=== PATIENT | female | born 1985 | race Two or more races ===

== ENCOUNTER 2025-01-24 14:11 | Outpatient (AMB) | payer OTHER, SELFPAY ==
--- NOTE | 2025-01-24 14:13 | A.OFFPC_ITS ---
Vital Signs 01/24/25 14:21 Weight 211 lb BP 112/72 Blood Pressure Location Lt brachial Position Sitting Respiration 22 H Pulse 84 Pulse Source Pulse Oximeter Temp 98 F Temp Source Oral Pulse Oximetry (%) 100 Oxygen Delivery Method Room Air Intake Visit Reasons: joint pain in right knee Intake Note: joint pain in right knee Dental Assisting Instructor Required: No Allergies pineapple Allergy (Severe, Verified 01/24/25 14:17) Anaphylaxis Tobacco use date assessed: 01/24/25 Dental Screening Dental Screen Date: 01/24/25 Did you have a dental visit in the last 12 months?: No Did you have a dental problem in the last 6 months where you did not have access to dental care?: No Was dental information given to patient?: Patient has dentist ([facility] in [place]) HPI HPI Comments History of Present Illness Details 39 year old presenting for pain in the r ight knee & to establish care Her right knee has been since bothering her since the 8th grade. In the 8th grade she was playing basketball and she fell over hard while her foot was planted. She tells me she did not tear any ligaments at the time. She did do PT for mroe than the past year. Going up the stairs clicks clicks. History of two tick bites within two years-the most recent one the end of August or September. Has had some brain fog since. She did receive a 10 day course of doxycycline. She has daily anxiety for years. No panic attacks. Is busy at work in school and with her children. ROS see HPI PHYSICAL EXAM: GENERAL: Alert and oriented x 3. NAD EYES: EOMI. Anicteric. HENT: Moist mucous membranes. No scleral icterus. No cervical lymphadenopathy. LUNGS: Clear to auscultation bilaterally. CARDIOVASCULAR: Regular rate and rhythm. No murmur. No JVD. ABDOMEN: Soft, non-tender +bs MSK: Significant right knee crepitus EXTREMITIES: No edema. Non-tender. SKIN: No rashes or lesions. Warm. NEUROLOGIC: No focal neurological deficits. CN II-XII grossly intact PSYCHIATRIC: Cooperative. Appropriate mood and affect [facility] Medical History (Updated 01/24/25 @ 14:45 by Arabella Florez MD) Knee pain Surgical History (Updated 01/24/25 @ 14:25 by Colby Lopez MA) Previous section Family History (Updated 01/24/25 @ 14:27 by Colby Lopez MA) Maternal Grandmother Asthma Mother Hypothyroidism Ovarian cancer Social History (Updated 01/24/25 @ 14:21 by Colby Lopez MA) Housing: House Alcohol intake: current Comment: ocasionally Patient Tobacco Use Status: Never used Tobacco e-Cigarette/Vaping Use: Never Used Second Hand Smoke Exposure: Yes service: No Current occupational status: employed 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 Current occupational exposures/hazards: Yes Cognitive needs: Yes (loss of memory) Hearing needs: No Vision needs: No Questionnaire Thrive Questionnaire Date Thrive assessed: 01/17/25 I am a: Patient What is your living situation today?: I have a steady place to live Within the past 12 months, did the food you bought not last and you didn't have the money to get more?: Never true Within the past 12 months, did you worry whether your food would run out before you got money to buy more?: Never true Do you have trouble paying for medicines?: No Do you have trouble getting transportation to medical appointments?: No Do you have trouble paying your heating and electricity bill?: No Do you have trouble taking care of your child, family member or friend?: No Do you have trouble with day-to-day activities such as bathing, preparing meals, shopping, managing finances, etc.?: No Are you currently unemployed and looking for a job?: No Are you interested in more education?: No Please select the resources that you would like help with: None Currently or been in a relationship where the following occur: No concerns reported THRIVE Score: 0 AUDIT C Alcohol Use Questionnaire (AUDIT-C) 1. How often do you have a drink containing alcohol?: Monthly or less 2. How many drinks containing alcohol do you have on a typical day when you are drinking?: 1 or 2 3. How often do you have six or more drinks on one occasion?: Never Total Score: 1 MAGDA-7 AMB Questionnaire MAGDA-7 Date MAGDA - 7 assessed: 01/24/25 Feeling nervous, anxious, or on edge: 1 = Several days Not being able to stop or control worryin = Several days Worrying too much about different things: 1 = Several days Trouble relaxin = More than half the days Being so restless that it is hard to sit still: 1 = Several days Becoming easily annoyed or irritable: 2 = More than half the days Feeling afraid as if something awful might happen: 0 = Not at all Total MAGDA-7 score (0-4 normal; 5-9 mild; 10-14 moderate; 15-21 severe): 8 Source: Developed by Drs. Umesh Estrada, Lore Segal, Nitish Elder and colleagues, with an educational haseeb from [employer]. Physical exam (Primary Care) Vital Signs: Last Vital Signs Temp 98 F 01/24/25 14:21 Pulse 84 01/24/25 14:21 Resp 22 H 01/24/25 14:21 BP 112/72 01/24/25 14:21 Pulse Ox 100 01/24/25 14:21 Oxygen Delivery Method Room Air 01/24/25 14:21 Tobacco/Smoking Status: Tobacco use Status Tobacco use date assessed 01/24/25 01/24/25 14:24 Patient Tobacco Use Status Never used Tobacco 01/24/25 14:24 e-Cigarette/Vaping Use Never Used 01/24/25 14:24 Thrive Assessment: Date of Thrive Assessment Date Thrive assessed 01/17/25 01/24/25 14:15 Currently or been in a relationship where the following occur: No concerns reported Coding Level of Care Code New Pt Level 4 (91997) Complex EM visit Add On G2211 Diagnoses Chronic pain of right knee M25.561; G89.29 Chronicity: chronic Tick bite of neck, subsequent encounter S10.96XD; W57.XXXD Encounter type: subsequent encounter Site of tick bite: unspecified part of neck Assessment & Plan Assessment & Plan (1) Right knee pain: Code(s): M25.561 - Pain in right knee Category: Medical Qualifiers: Chronicity: chronic Qualified Code(s): M25.561 - Pain in right knee; G89.29 - Other chronic pain (2) Tick bite: Code(s): W57.XXXA - Bitten or stung by nonvenomous insect and other nonvenomous arthropods, initial encounter Category: Medical Qualifiers: Encounter type: subsequent encounter Site of tick bite: unspecified part of neck Qualified Code(s): S10.96XD - Insect bite of unspecified part of neck, subsequent encounter; W57.XXXD - Bitten or stung by nonvenomous insect and other nonvenomous arthropods, subsequent encounter Plan 39 yo to establish care Past medical, surgical, social reviewed Knee pain-refer orthopedics Tick bite-lab ordered Lab panel ordered obesity-phentermine sent anxiety -start prozac. Sparing lorazepam for acute anxiety Orders: Orders Lyme IgG/IgM w/reflex to WB Today M25.561 - Pain in right knee, R35.89 - Other polyuria, R53.83 - Other fatigue, W57.XXXA - Bitten or stung by nonvenomous insect and other nonvenomous arthropods, initial encounter Tick-borne Disease Molecular Today M25.561 - Pain in right knee, R35.89 - Other polyuria, R53.83 - Other fatigue, W57.XXXA - Bitten or stung by nonvenomous insect and other nonvenomous arthropods, initial encounter TSH reflex Free T4 Today M25.561 - Pain in right knee, R35.89 - Other polyuria, R53.83 - Other fatigue, W57.XXXA - Bitten or stung by nonvenomous insect and other nonvenomous arthropods, initial encounter Complete Blood Count Auto Diff Today M25.561 - Pain in right knee, R35.89 - Other polyuria, R53.83 - Other fatigue, W57.XXXA - Bitten or stung by nonvenomous insect and other nonvenomous arthropods, initial encounter Comprehensive Met. Panel Today M25.561 - Pain in right knee, R35.89 - Other polyuria, R53.83 - Other fatigue, W57.XXXA - Bitten or stung by nonvenomous insect and other nonvenomous arthropods, initial encounter Hemoglobin A1c Today M25.561 - Pain in right knee, R35.89 - Other polyuria, R53.83 - Other fatigue, W57.XXXA - Bitten or stung by nonvenomous insect and other nonvenomous arthropods, initial encounter Referrals Orthopedics Referral M25.561 - Pain in right knee, R35.89 - Other polyuria, R53.83 - Other fatigue, W57.XXXA - Bitten or stung by nonvenomous insect and other nonvenomous arthropods, initial encounter Medications: New fluoxetine (Prozac) 10 mg PO DAILY 90 caps 3RF lorazepam 0.5 mg PO BID PRN 60 tabs 0RF anxiety phentermine must administer 30 minutes before or 1-2 hours after breakfast 37.5 mg PO DAILY 30 caps 3RF
[2025-01-24 14:21] VITALS: BP 112/72; PULSE 84; RESP 22; TEMP 36.6; O2SAT 100
--- OUTSIDE RECORDS SUMMARY | 2025-01-24 17:51 | XMS_ITS | Encounter Summary ---
Author Organization [facility] Address [address] [place] [address] Care Team Providers Care Inside Sales Agent Name Role Phone Kiersten Holley MD Primary Care Provider [phone] Encounter Details Date Type Department Care Team (Latest Contact Info) Description 06/08/[address] [facility] Lab [address] [facility] [place] [address] Shaista Baer MD [address] [phone] Encounter for gynecological examination (general) (routine) without abnormal findings Social History Tobacco Use Types Packs/Day Years Used Date Smoking Tobacco: Former Cigarettes Q uit: 06/19/2006 Smokeless Tobacco: Never Alcohol Use Standard Drinks/Week Comments Yes 0 (1 standard drink = 0.6 oz pur e alcohol) Comments Unknown Sex and Gender Information Value Date Recorded Sex Assigned at Not on file Legal Sex Female 1:36 PM EDT Gender Identity Not on file Sexual Orientation Not on file documented as of this encounter Plan of Treatment Not on file documented as of this encounter Procedures Procedure Name Priority Date/Time Associated Diagnosis Comments PAP SMEAR Routine 06/07/2024 12:00 AM EDT Encounter for gynecological examination (general) (routine) without abnormal findings documented in this encounter Results * Pap smear (06/07/2024 12:00 AM EDT) Interpretation Negative for intraepithelial lesion or malignancy 06/09/2024 10:35 AM EDT [facility] General Categorization Negative 06/09/2024 10:35 AM EDT [facility] LMP 05/24/2024 06/[facility] Specimen Adequacy Satisfactory for evaluation, endocervical/rao sformation zone component absent 06/09/2024 10:35 AM EDT [facility] Pap Methodology Liquid Based Pap Test 06/09/2024 10:35 AM EDT [facility] Disclaimer The Pap test is a screening test which carries an inherent false negative rate. These test results should be correlated with the patient's clinical findings and history. This Pap test was processed using an automated screening system. Technical cytopathology services provided by [facility], at [address] [place] [address] (CLIA # [id number]/Armaan Gonzalez MD, Director Statistical Programming.) 06/09/2024 10:35 AM [facility] Console Pap Interpretation Reported 06/09/2024 10:35 AM [facility] Brushing/Spatula Cervix uteri structure / Unknown 06/07/2024 06/08/2024 7:04 AM EDT us Shaista Baer MD LAB CYTOLOGY ORDERABLES Final Result [facility] [address] [place] [address], documented in this encounter Visit Diagnoses Diagnosis Encounter for gynecological examination (general) (routine) without abnormal findings documented in this encounter Care Teams Inside Sales Agent Relationship Specialty Start Date End Date Kiersten Holley MD [address] [place] [address] PCP - General 04/25/23 documented as of this encounter
--- OUTSIDE RECORDS SUMMARY | 2025-01-24 17:51 | XMS_ITS | Encounter Summary ---
Author Organization [facility] Address [address] [place] [address] Care Team Providers Care Vacuum Drum Drier Operator Name Role Phone Kiersten Holley MD Primary Care Provider [phone] Encounter Details Date Type Department Care Team (Late st Contact Info) Description 07/27/2024 Nurse Triage Adult Medicine [address] [phone] Joaquín Jasmine PA [address] [place] [phone] Social History Tobacco Use Types Packs/Day Years [...] on file documented as of this encounter Progress Notes * Ally Campos RN - 07/29/2024 4:00 PM EDT [phone] (home) called number listed , no answer messaging stated pt.'s first name , left message to call the office back at [phone] * Ally Campos RN - 07/28/2024 10:22 AM EDT [phone] (home) Called number listed , no answer messaging stated pt.'s first name ,left message to call the officeback at [phone] documented in this encounter Plan of Treatment Not on file documented as of this encounter Visit Diagnoses Not on filedocumented in this encounter Care Teams Vacuum Drum Drier Operator Relationship Specialty Start Date End Date Kiersten Holley MD [address] [place] [phone] PCP - General 04/25/23 documented as of this encounter
--- OUTSIDE RECORDS SUMMARY | 2025-01-24 17:51 | XMS_ITS | Clinical Summary ---
Author Organization [facility] Address [address] [place] [address] Care Team Providers Care Field Logistics Coordinator Name Role Phone Kiersten Holley MD Primary Care Provider [phone] Allergies Active Allergy Reactions Criticality Noted Date Comments Pineapple 09/14/2019 Medications cholecalciferol (VITAMIN D-3) 25 mcg (1,000 unit) capsule Take 1 Capsule by mouth daily. 12/22/2023 Active norethindrone-e thinyl estradiol (FEMHRT 04/04) 1-5 mg-mcg per tablet Take 1 Tablet by mouth daily. 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 Chronic knee pain 09/20/2019 Overview (03/16/2024): Right knee Constipation 09/20/2019 Vitamin D deficiency 09/20/2019 Immunizations Immunization Administration Dates Next Due HPV, Quadrivalent 04/15/2012,08/21/2011,02/06/20 11 Influenza Quadravalent, MDCK , 0.5ml, preservative free (Flucelvax) 6mo and older 06/03/2022 Influenza trivalent, 0.5mL, preservative free (Fluarix; FluLaval; Fluzone) ages 6mo and older (Afluria) 3 years and older 12/22/2023 Tdap Tetanus diptheria acell ular pertussis (Boostrix; Adacel) 7yo and older 08/30/2019,05/03/2013 Surgical History Surgery Date Site/Laterality Comments SECTION 07/2019 PROCEDURE: HISTORICAL DELIVERY; COMMENT: 05/2021 CERVICAL BIOPSY W/ LOOP ELECTRODE EXCISION PROCEDURE: AR CONIZATION CERVIX W/WO D&C RPR ELTRD EXC; COMMENT: age 25yo OTHER SURGICAL HISTORY PROCEDURE: ---- OTHER ----; COMMENT: all teeth removed due to low vit D, placed dentures Medical History Medical History Date Comments Abnormal Pap smear of cervix 12/15/2019 DX: Abnormal Pap smear of cervix; COMMENT: S/p colposcopy and conization 01/08 Family History Medical History Relation Name Comments Hyperthyroidism Brother Heart attack Maternal Grandfather 70's No Known Problems Maternal Grandmother Other: inactive thyroid gland Mother hypothyroidism Other: ovarian cancer Mother Other: vitamin D deficiency Mother No Known Problems Son 1 No Known Problems Son 2 Relation Name Status Comments Brother Alive Maternal Grandfather Maternal Grandmother Mother Son 1 Alive Son 2 Alive Social History Tobacco Use Types Packs/Day Years [...] on file Sexual Orientation Not on file Obstetrics History Last Filed Vital Signs Vital Sign Reading Time Taken Comments Blood Pressure 110/74 07/30/2024 7:55 AM EDT Pulse 68 07/30/2024 7:55 AM EDT Temperature 36.6 C (97.9 F) 07/30/2024 7:55 AM EDT Respiratory Rate 18 07/30/2024 7:55 AM EDT Oxygen Saturation 98% 07/30/2024 7:55 AM EDT Inhaled Oxygen Concentration - - Weight 90.5 kg (199 lb 9.6 oz) 07/30/2024 7:55 A M EDT Height 160 cm (5' 3 ) 07/30/2024 7:55 AM EDT Body Mass Index 35.36 07/30/2024 7:55 AM EDT Plan of Treatment Health Maintenance Due Date Last Done Comments Hepatitis B Vaccines (1 of 3 - 19+ 3-dose series) 2005 HIV Screening 06/11/2020 Hepatitis C Screening 06/11/2020 Social Influencers of Health Screening 06/11/2020 Depression Screening 03/31/2024 12/22/2023 COVID-19 Vaccine ( season) 2024 Influenza Vaccine (#1) 2024 , 06/03/2022, 05/27/2016, Additional history exists Cervical Cancer Screening: Pap Smear 06/07/2025 06/07/2024, 01/28/2023 Cholesterol Screening (Lipid Panel) 12/21/2028 12/22/2023, 12/22/2023 DTaP,Tdap,and Td Vaccines (3 - Td or Tdap) 08/29/2029 08/30/2019, 05/03/2013 RSV Immunization Adult Patients (1 - 1-dose 75+ series) 2061 HPV Vaccines Completed 04/15/2012, 07/30, 02/05/2011 HIB Vaccines Aged Out No longer eligi ble based on patient's age to complete this topic Hepatitis A Vaccines Aged Out No long er eligible based on patient's age to complete this topic IPV Vaccines Aged Out No longer eligi ble based on patient's age to complete this topic MMR Vaccines Aged Out No longer eligi ble based on patient's age to complete this topic Meningococcal ACWY Vaccine Aged Out N o longer eligible based on patient's age to complete this topic Meningococcal B Vaccine Aged Out No l onger eligible based on patient's age to complete this topic Pneumococcal Vaccine: Pediatrics (0 to 5 Years) and At-Risk Patients (6 to 49 Years) Aged Out No longer eligible based on patient's age to complete this topic RSV Immunization Patients Under 20 months Aged Out No longer eligible based on patient's age to complete this topic Varicella Vaccines Aged Out No longer eligible based on patient's age to complete this topic Procedures Procedure Name Priority Date/Time Associated Diagnosis Comments PAP SMEAR Routine 06/07/2024 12:00 AM EDT Encounter for gynecological examination (general) (routine) without abnormal findings HM DEPRESSION SCREENING Routine 12/22/2023 LIPID PANEL Routine 12/22/2023 from Last 3 Months or Most Recently Relevant to Health Maintenance Results * Pap smear (06/07/2024 12:00 AM EDT) Interpretation Negative for intraepithelial lesion or malignancy 06/09/2024 10:35 AM EDT [facility] General Categorization Negative 06/09/2024 10:35 AM EDT [facility] LMP 05/24/2024 06/09/2024 10:35 AM EDT [facility] Specimen Adequacy Satisfactory for evaluation, endocervical/rao sformation zone component absent 06/09/2024 10:35 AM EDT [facility] Pap Methodology Liquid Based Pap Test 06/09/2024 10:35 AM EDT [facility] Disclaimer The Pap test is a screening test which carries an inherent false negative rate. These test results should be correlated with the patient's clinical findings and history. This Pap test was processed using an automated screening system. Technical cytopathology services provided by [facility], at [address] [place] [address] (CLIA # [id number]/Armaan Gonzalez MD, Criminal Justice Program Director.) 06/09/2024 10:35 AM EDT [facility] Console Pap Interpretation Reported 06/09/2024 10:35 AM EDT [facility] Brushing/Spatula Cervix uteri structure / Unknown 06/07/2024 06/08/2024 7:04 AM EDT us Shaista Baer MD LAB CYTOLOGY ORDERABLES Final Result [facility] [address] [place] [address], * Depression Screening (12/22/2023) Depression Screening Abstracted us Historical Provider HEALTH MAINTENANCE Final Result * (ABNORMAL) Lipid panel (12/22/2023) LDL/HDL Ratio 3 0 - 4 Triglycerides 127 0 - 150 mg/dL Cholesterol 223(A) 0 - 200 mg/dL HDL 75 >=40 mg/dL LDL Cholesterol 123(A) 0 - 100 mg/dL Blood Venous blood specimen / Unknown Historical Provider LAB BLOOD ORDERABLES Radha l Result from Last 3 Months or Most Recently Relevant to Health Maintenance Insurance [facility] [employer] Care Teams Field Logistics Coordinator Relationship Specialty Start Date End Date Kiersten Holley MD [address] [place] [phone] PCP - General 04/25/23
== END 2025-01-24 14:43 | disposition home or self-care (01) ==
LOC: HO.HMCFM 14:11
PROVIDERS: PCP Internal Medicine; Visit Provider Internal Medicine
DX: M25.561 Pain in right knee (principal); G89.29 Other chronic pain; S10.96XD Insect bite of unspecified part of neck, subsequent encounter; W57.XXXD Bitten or stung by nonvenomous insect and other nonvenomous arthropods, subsequent encounter

== ENCOUNTER 2025-01-24 14:11 | Outpatient (REF) | payer OTHER, SELFPAY ==
[2025-01-24 17:52] LABS: MANUAL DIFF FLAG NO
[2025-01-24 18:10] LABS: Hematocrit 38.9 % (37.0-47.0); Hemoglobin 12.0 g/dl (12.0-16.0); Imm Gran Abs Auto 0.03 X10*3/uL (0.00-0.03); Imm Gran Pct Auto 0.4 % (0.0-0.4); Lymphocytes Absolute Auto 2.7 X10*3/uL (1.2-4.9); Mean Corpuscular HGB Conc 30.8 g/dl (31.0-35.0); Mean Corpuscular Hemoglobin 26.0 pg (27.0-33.0); Mean Corpuscular Volume 84.4 fL (80.0-98.0); NRBC Abs Auto 0.000 X10*3/uL (0.0-0.012); NRBC Pct Auto 0.0 /100WBC (0.0-0.2); Platelet Count 184 X10*3/uL (160-400); Red Blood Count 4.61 X10*6/uL (4.20-5.50); White Blood Count 7.3 X10*3/uL (4.8-10.8)
[2025-01-24 18:34] LABS: Alanine Aminotransferase 10 U/L (0-31); Albumin Level 4.2 g/dL (3.5-5.0); Alkaline Phosphatase 36 U/L (39-117); Anion Gap 10 (12-20); Aspartate Amino Transferase 20 U/L (5-31); Blood Urea Nitrogen 10 mg/dL (9-16); Calcium 8.7 mg/dL (8.4-10.2); Carbon Dioxide 26 mmol/L (22-29); Chloride 107 mmol/L (96-108); Estimated Glomerular Filt Rate > 60; Potassium 3.9 mmol/L (3.3-5.1); Sodium 139 mmol/L (135-145); Total Protein 7.3 g/dL (6.5-8.0)
[2025-01-25 05:25] LABS: Hemoglobin A1C 114.3986 umol/L
[2025-01-25 13:08] LABS: Lyme Blot 1.93 index
[2025-01-26 15:16] LABS: Lyme Abs Screen POSITIVE
[2025-01-26 22:49] LABS: 39KD (IgG) Band REACTIVE; 41KD (IgG) Band REACTIVE; Lyme IgG Blot Interp POSITIVE (NEGATIVE); Lyme IgM Blot Interp POSITIVE (NEGATIVE)
[2025-01-27 06:08] LABS: A. Phagocytphilium DNA,RT-PCR NOT DETECTED (NOT DETECTED); Babesia Microti DNA, RT-PCR NOT DETECTED (NOT DETECTED); Borrelia Miyamotoi,DNA RT-PCR NOT DETECTED (NOT DETECTED); E.Chaffeensis DNA RT-PCR NOT DETECTED (NOT DETECTED); Lyme(Borrelia ssp)DNA RT-PCR NOT DETECTED (NOT DETECTED)
== END 2025-01-24 14:12 | disposition home or self-care (01) ==
LOC: HO.WFDLDS 14:11
PROVIDERS: PCP Internal Medicine; Visit Provider Internal Medicine
DX: M25.561 Pain in right knee (principal); R53.83 Other fatigue; R35.89 Other polyuria; S10.96XD Insect bite of unspecified part of neck, subsequent encounter; W57.XXXA Bitten or stung by nonvenomous insect and other nonvenomous arthropods, initial encounter; G89.29 Other chronic pain
CPT/HCPCS: 36415; 80053; 83036; 84443; 85025; 86617; 86618; 87468; 87469; 87478; 87484; 87798; 99202

== ENCOUNTER 2025-03-15 10:50 | Outpatient (REF) | payer OTHER, SELFPAY ==
--- NOTE | ~2025-03-15 | XR_ITS ---
EXAMINATION: XR KNEE, RIGHT CLINICAL INFORMATION: M25.561 - Pain in right knee COMPARISON: None available. TECHNIQUE: Three views of the right knee. FINDINGS: No acute fracture or dislocation.. Alignment is anatomic. Joint spaces are maintained. Small suprapatellar joint fluid. No abnormal soft tissue calcification. XR/XR knee RT 3V IMPRESSION: No radiographic evidence of acute osseous abnormality. Electronically signed by: Josué Balderas MD 03/16/2025 11:40 AM [facility]
--- OUTSIDE RECORDS SUMMARY | 2025-03-16 14:02 | XMS_ITS | Clinical Summary ---
Author Organization [facility] Address [address] [place] [address] Care Team Providers Care Seat Joiner Name Role Phone Kiersten Holley MD Primary Care Provider [phone] Allergies Active Allergy Reactions Criticality Noted Date [...] CERVICAL BIOPSY W/ LOOP ELECTRODE EXCISION PROCEDURE: [place] CONIZATION CERVIX W/WO D&C RPR ELTRD EXC; [...] lesion or malignancy 06/09/2024 10:35 AM EDT [facility] at 1035 EDT General Categorization Negative 06/09/2024 10:35 AM EDT [facility] LMP 05/24/2024 06/09/2024 10:35 AM EDT [facility] Specimen Adequacy Satisfactory for evaluation, endocervical/rao sformation zone component absent 06/09/2024 10:35 AM EDT [facility] Pap Methodology Liquid Based Pap Test 06/09/2024 10:35 AM EDT [facility] Disclaimer The Pap test is a screening test which carries an inherent false negative rate. These test results should be correlated with the patient's clinical findings and history. This Pap test was processed using an automated screening system. Technical cytopathology services provided by [facility], at [address] [place] [address] (CLIA # [id number]/Armaan Gonzalez MD, Steward/Stewardess Lounge.) 06/09/2024 10:35 AM EDT [facility] Console Pap Interpretation Reported 06/09/2024 10:35 AM EDT [facility] Brushing/Spatula Cervix uteri structure / Unknown 06/07/2024 06/08/2024 7:04 AM EDT us Shaista Baer MD LAB CYTOLOGY ORDERABLES Final Result [facility] [address] [place] [address], * Depression Screening (12/22/2023) Depression Screening Abstracted [...] Most Recently Relevant to Health Maintenance Insurance [facility] Care Teams Seat Joiner Relationship Specialty Start Date End Date Kiersten Holley MD [address] [place] [phone] [facility] - General 04/25/23
--- OUTSIDE RECORDS SUMMARY | 2025-03-16 14:02 | XMS_ITS | Encounter Summary ---
[facility] Organization [facility] Address [address] [place] [address] Care Team Providers Care Budget Specialist Name Role Phone Kiersten Holley MD Primary Care Provider [phone] Encounter Details Date Type Department Care Team (Latest Contact Info) Description 06/08/[address] [facility] - Main Lab 299 [facility] [place] [address] Shaista Baer MD [address] [phone] Encounter for gynecological examination (general) (routine) without [...] 06/09/2024 10:35 AM EDT [facility] at 1035 EDT General Categorization [...] system. Technical cytopathology services provided by [facility], at [address] [place] [address] (CLIA # [id number]/Armaan Gonzalez MD, Candy Wrapping Machine Operator.) 06/09/2024 10:35 AM T [facility] Console Pap Interpretation Reported 06/09/2024 10:[address] [facility] Brushing/Spatula Cervix uteri structure / Unknown 06/07/2024 06/08/2024 7:04 AM EDT us Shaista Baer MD LAB CYTOLOGY ORDERABLES Final Result [facility] [address] [place] [address], documented in this encounter Visit Diagnoses Diagnosis Encounter for gynecological examination (general) (routine) without abnormal findings documented in this encounter Care Teams Budget Specialist Relationship Specialty Start Date End Date Kiersten Holley MD [address] [place] [address] PCP - General 04/25/23 documented as of this encounter
--- OUTSIDE RECORDS SUMMARY | 2025-03-16 14:02 | XMS_ITS | Encounter Summary ---
Author Organization Address [address] [place] [address] Care Team Providers Care Pipeliner Name Role Phone Kiersten Holley MD Primary Care Provider [phone] Encounter Details Date Type Department Care Team (Late st Contact Info) Description 07/27/2024 Nurse Triage Adult Medicine [address] [phone] Joaquín Jasmine PA [address] [place] [phone] Social History Tobacco Use Types Packs/Day Years [...] Campos RN - 07/29/2024 4:00 PM EDT [phone] (home) called number listed , no answer messaging stated pt.'s first name , left message to call the office back at [phone] * Ally Campos RN - 07/28/2024 10:22 AM EDT [phone] (home) Called number listed , no answer messaging stated pt.'s first name ,left message to call the officeback at [phone] documented in this encounter Plan of Treatment Not on file documented as of this encounter Visit Diagnoses Not on filedocumented in this encounter Care Teams Pipeliner Relationship Specialty Start Date End Date Kiersten Holley MD [address] [place] [phone] PCP - General 04/25/23 documented as of this encounter
== END 2025-03-15 10:51 | disposition home or self-care (01) ==
LOC: HO.HOSX 10:50
PROVIDERS: Visit Provider Orthopaedic Surgery
DX: S83.241A Other tear of medial meniscus, current injury, right knee, initial encounter (principal); G89.29 Other chronic pain; X58.XXXA Exposure to other specified factors, initial encounter; Y92.89 Other specified places as the place of occurrence of the external cause; Y99.9 Unspecified external cause status
CPT/HCPCS: 73562

== ENCOUNTER 2025-03-15 12:54 | Outpatient (AMB) | payer OTHER, SELFPAY ==
--- NOTE | 2025-03-15 13:02 | A.OFFVIS_ITS ---
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 The patient states that her symptoms have gotten worse over the last 20 years. She was told in 8th grade that she could not play competitive basketball because of her knee pains, right greater than left. She has failed the last 6 weeks of conservative treatment which has included Tylenol, ibuprofen and a home exercise program. Most of the pain is along the medial aspect of her right knee. She states that her right knee will give out several times per day. Allergies pineapple Allergy (Severe, Verified 01/24/25 14:17) Anaphylaxis Medication List - Last Reconciled 03/15/25 by Christoph Chaudhry MD doxycycline hyclate 100 mg PO BID fluoxetine (Prozac) 10 mg PO DAILY ibuprofen 200 mg PO Q6H PRN lorazepam 0.5 mg PO BID PRN phentermine 37.5 mg PO DAILY PFSH Medical History (Updated 03/15/25 @ 13:24 by Christoph Chaudhry MD) Knee pain Surgical History (Updated 01/24/25 @ 14:25 by Colby Lopez CMA) Previous section Family History (Updated 01/24/25 @ 14:28 by Colby Lopez CMA) Maternal Grandmother Asthma Mother Hypothyroidism Ovarian cancer Social History (Updated 01/24/25 @ 14:21 by Colby Lopez CMA) Housing: House Alcohol intake: current Comment: ocasionally Patient Tobacco Use Status: Never used Tobacco e-Cigarette/Vaping Use: Never Used Second Hand Smoke Exposure: Yes service: No Current occupational status: employed 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 Current occupational exposures/hazards: Yes Cognitive needs: Yes (loss of memory) Hearing needs: No Vision needs: No Physical Exam Vital Signs: BMI result Body Mass Index 34.7 Extrem Other: Right knee examination shows a minimal effusion, mild crepitus with range of motion, tenderness along her medial joint line, positive Sebastian's test, no instability Results Reviewed Results Reviewed: X-rays of the patient's right knee taken today show mild diffuse joint space narrowing, no acute bony abnormalities Assessment & Plan Assessment & Plan (1) Tear of medial meniscus of right knee: Code(s): S83.241A - Other tear of medial meniscus, current injury, right knee, initial encounter Category: Medical Plan Ms. Mathew presents with right knee pain and mechanical symptoms due to early degenerative joint disease as well as possible medial meniscus tearing. Thus, I will send the patient for an MRI of her right knee for further evaluation. I will see her back once the MRI is completed to discuss the findings and treatment options. Feel free to call me at any time should questions regarding her orthopedic management arise. Thank you very much for asking me to see this very friendly patient. I spent 21 minutes in reviewing the patient's records and imaging studies, seeing the patient and documenting in the medical record. Orders: Orders XR knee RT 3V Today G89.29 - Other chronic pain, M25.561 - Pain in right knee MR knee RT wo con 03/16/25 S83.241A - Other tear of medial meniscus, current injury, right knee, initial encounter Coding Level of Care Code Est Pt Level 3 (45624) Add On Problem Visit Only Diagnoses Tear of medial meniscus of right knee S83.241A
[2025-03-15 13:07] VITALS: BMI 34.7
--- OUTSIDE RECORDS SUMMARY | 2025-03-15 16:46 | XMS_ITS | Encounter Summary ---
[facility] [address] Address [address] [place] [address] Care Team Providers Care Network Security Analyst Name Role Phone Kiersten Holley MD Primary Care Provider [phone] Encounter Details Date Type Department Care Team (Latest Contact Info) Description 06/08/2024 Lab Requisition [facility] - Main Lab 299 [facility] [place] [address] Shaista Baer MD [address] [phone] Encounter for gynecological examination (general) (routine) without abnormal findings Social History Tobacco Use Types Packs/Day Years Used Date Smoking Tobacco: Former Cigarettes 0.1 Q uit: 06/19/2006 Smokeless Tobacco: Never Alcohol [...] lesion or malignancy 06/09/2024 10:35 AM EDT [facility] at 1035 EDT General Categorization Negative 06/09/2024 10:35 AM EDT [facility] LMP 05/24/2024 06/09/2024 10:35 AM EDT [facility] Specimen Adequacy Satisfactory for evaluation, endocervical/rao sformation zone component absent 06/09/2024 10:35 AM EDT [facility] Pap Methodology Liquid Based Pap Test 06/09/2024 10:35 AM EDT [facility] Disclaimer The Pap test is a screening test which carries an inherent false negative rate. These test results should be correlated with the patient's clinical findings and history. This Pap test was processed using an automated screening system. Technical cytopathology services provided by [facility], at [address] [place] [address] (CLIA # [id number]/Armaan Gonzalez MD, Motorcycle Builder.) 06/09/2024 10:35 AM T [facility] Console Pap Interpretation Reported 06/09/2024 10:35 AM [facility] Brushing/Spatula Cervix uteri structure / Unknown 06/07/2024 06/08/2024 7:04 AM EDT us Shaista Baer MD LAB CYTOLOGY ORDERABLES Final Result [facility] [address] [place] [address], documented in this encounter Visit Diagnoses Diagnosis Encounter for gynecological examination (general) (routine) without abnormal findings documented in this encounter Care Teams Network Security Analyst Relationship Specialty Start Date End Date Kiersten Holley MD [address] [place] [address] PCP - General 04/25/23 documented as of this encounter
--- OUTSIDE RECORDS SUMMARY | 2025-03-15 16:46 | XMS_ITS | Clinical Summary ---
Author Organization [facility] Address [address] [place] [address] Care Team Providers Care Retail And Restaurant Name Role Phone Kiersten Holley MD Primary Care Provider [phone] Allergies Active Allergy Reactions Criticality Noted Date [...] CERVICAL BIOPSY W/ LOOP ELECTRODE EXCISION PROCEDURE: [place] CONIZATION CERVIX W/WO D&C RPR ELTRD EXC; [...] on file Sexual Orientation Not on file Last Filed Vital Signs Vital Sign Reading [...] Depression Screening 03/31/2024 12/22/2023 COVID-19 Vaccine ( - season) 2024 Influenza Vaccine (#1) 2024 , [...] lesion or malignancy 06/09/2024 10:35 AM EDT [facility] at 1035 EDT General Categorization Negative 06/09/2024 10:35 AM EDT [facility] LMP 05/24/2024 06/09/2024 10:35 AM EDT [facility] Specimen Adequacy Satisfactory for evaluation, endocervical/rao sformation zone component absent 06/09/2024 10:35 AM EDT [facility] Pap Methodology Liquid Based Pap Test 06/09/2024 10:35 AM EDT [facility] Disclaimer The Pap test is a screening test which carries an inherent false negative rate. These test results should be correlated with the patient's clinical findings and history. This Pap test was processed using an automated screening system. Technical cytopathology services provided by [facility], at [address] [place] [address] (CLIA # [id number]/Armaan Gonzalez MD, Financial Specialist.) 06/09/2024 10:35 AM EDT [facility] Console Pap Interpretation Reported 06/09/2024 10:35 AM EDT [facility] Brushing/Spatula Cervix uteri structure / Unknown 06/07/2024 06/08/2024 7:04 AM EDT us Shaista Baer MD LAB CYTOLOGY ORDERABLES Final Result [facility] [address] [place] [address], * Depression Screening (12/22/2023) Depression Screening Abstracted [...] Most Recently Relevant to Health Maintenance Insurance [facility] Care Teams Retail And Restaurant Relationship Specialty Start Date End Date Kiersten Holley MD [address] [place] [phone] [facility] - General 04/25/23
--- OUTSIDE RECORDS SUMMARY | 2025-03-15 16:46 | XMS_ITS | Encounter Summary ---
Author Organization [facility] Address [address] [place] [address] Care Team Providers Care Band Tacker Name Role Phone Kiersten Holley MD Primary Care Provider [phone] Encounter Details Date Type Department Care Team (Late st Contact Info) Description 07/27/2024 Nurse Triage Adult Medicine [address] [phone] Joaquín Jasmine PA [address] [place] [phone] Social History Tobacco Use Types Packs/Day Years [...] Campos RN - 07/29/2024 4:00 PM EDT [phone] (home) called number listed , no answer messaging stated pt.'s first name , left message to call the office back at [phone] * Ally Campos RN - 07/28/2024 10:22 AM EDT [phone] (home) Called number listed , no answer messaging stated pt.'s first name ,left message to call the officeback at [phone] documented in this encounter Plan of Treatment Not on file documented as of this encounter Visit Diagnoses Not on filedocumented in this encounter Care Teams Band Tacker Relationship Specialty Start Date End Date Kiersten Holley MD [address] [place] [phone] PCP - General 04/25/23 documented as of this encounter
== END 2025-03-15 13:19 | disposition home or self-care (01) ==
LOC: HO.HOS 12:55
PROVIDERS: PCP Internal Medicine; Visit Provider Orthopaedic Surgery
DX: S83.241A Other tear of medial meniscus, current injury, right knee, initial encounter (principal)
CPT/HCPCS: 99213